=== PATIENT | female | born 1960 | race Caucasian/White ===

== ENCOUNTER 2023-10-28 15:29 | Observation (INO) | payer OTHER ==
[~2023-10-28] VITALS: Ht 175.3 cm; Wt 52.8 kg
[2023-10-28] MEDS ORDERED: LISI20 PO (15:41)
[2023-10-28 15:50] LABS: BASOPHILS ABSOLUTE AUTO 0.03 K/mm3 (0.00-0.23); BASOPHILS PERCENT AUTO 0 % (0-2); EOSINOPHILS ABSOLUTE AUTO 0.01 K/mm3 (0.00-0.68); EOSINOPHILS PERCENT AUTO 0 % (0-6); IMMATURE GRAN ABSOLUTE AUTO 0.38 K/mm3 (0.00-0.10); IMMATURE GRAN PERCENT AUTO 1 % (0-1); LYMPHOCYTES PERCENT AUTO 5 % (21-46); MONOCYTES ABSOLUTE AUTO 1.29 K/mm3 (0.16-1.47); MONOCYTES PERCENT AUTO 4 % (4-13); Mean Corpuscular HGB 20.4 pg (26.0-34.0); Mean Corpuscular HGB Conc 29.3 g/dL (31.5-36.5); Mean Corpuscular Volume 70 fL (80-100); Mean Platelet Volume 8.4 fL (9.1-12.4); NEUTROPHILS ABSOLUTE AUTO 27.36 K/mm3 (1.96-9.15); NEUTROPHILS PERCENT AUTO 90 % (41-73); Platelet Count 371 K/mm3 (150-400); RDW Coefficient Variation 19.9 % (11.7-14.2); White Blood Cell Count 30.57 K/mm3 (4.00-11.30)
[2023-10-28 15:59] LABS: Source, Urine Clean Catch
[2023-10-28 16:02] LABS: Appearance, Urine Hazy (Clear); Bilirubin, Urine Neg (Neg); Blood, Urine Neg (Neg); Color, Urine Yellow (P-Yellow); Glucose Qualitative, Urine Neg (Neg); Ketones, Urine 1+ (Neg); Leukocyte Esterase, Urine 1+ (Neg); Nitrite, Urine Neg (Neg); Protein, Urine 1+ (Neg); Urobilinogen, Urine 2+ (Normal)
[2023-10-28 16:04] LABS: Hematocrit 16.7 % (33.0-51.0); Hemoglobin 4.9 g/dL (11.5-16.0)
[2023-10-28 16:07] LABS: Albumin, Blood 1.2 g/dL (3.4-5.0); Albumin/Globulin Ratio 0.4 (0.8-1.8); Bilirubin, Total 0.4 mg/dL (0.1-1.0); Bun/Creatinine Ratio 29.3 (12.0-20.0); Calcium, Blood 7.3 mg/dL (8.5-10.1); Creatinine, Blood 0.72 mg/dL (0.40-1.00); Globulin, Blood 3.3 g/dL (2.2-4.0); Potassium, Blood 4.1 mmol/L (3.5-5.5); Total Protein, Blood 4.5 g/dL (6.4-8.2)
[2023-10-28 16:12] LABS: Amorphous Light (0-Heavy); Bacteria Few /hpf; Mucus Light (0-Heavy); Red Blood Cells, Urine 0-2 /hpf (0-2); Squamous Epithelial Cells Few /hpf (Few)
[2023-10-28] MEDS ORDERED: NS 1,000 ML IV SCH ×2 (17:35→18:20)
[2023-10-28 18:42] LABS: IMMATURE RETIC FRACTION 41.1 % (2.3-16.0); RETIC HGB EQUIVALENT 22.9 pg (28.20-36.60); RETICULOCYTE ABSOLUTE 0.0686 M/mm3 (0.0200-0.1100); RETICULOCYTE COUNT PERCENT 2.53 % (0.50-2.50)
[2023-10-28 21:25] VITALS: BP 91/65
[2023-10-28 23:09] LABS: Hematocrit 28.1 % (33.0-51.0)
[2023-10-29] VITALS (9 sets, daily range): BP systolic 73–95; BP diastolic 53–69
--- NOTE | 2023-10-29 00:15 | NUR ---
RECEIVED PATIENT FROM EMERGENCY ROOM IN NO APPARENT DISTRESS. PATIENT AWAKE ALERT, WITH BLOOD INFUSING. ABLE TO STAND AND TRANSFER TO BED WITH MINIMAL DIFFICULTY. REP[EAT CBC DONE AFTER BLOOD INFUSED.
[2023-10-29 05:39] LABS: Hematocrit 26.3 % (33.0-51.0); Hemoglobin 8.4 g/dL (11.5-16.0); Mean Corpuscular HGB 23.8 pg (26.0-34.0); Mean Corpuscular HGB Conc 31.9 g/dL (31.5-36.5); Mean Platelet Volume 8.6 fL (9.1-12.4); Platelet Count 327 K/mm3 (150-400); RDW Coefficient Variation 21.1 % (11.7-14.2); RDW Standard Deviation 55.8 fL (35.1-46.3); Red Blood Cell Count 3.53 M/mm3 (3.80-5.20); White Blood Cell Count 31.89 K/mm3 (4.00-11.30)
[2023-10-29 05:43] LABS: Mean Corpuscular Volume 75 fL (80-100)
[2023-10-29] MEDS ORDERED: NS 1,000 ML IV ONE (08:00)
[2023-10-29] MEDS ORDERED: Heparin Sodium,Porcine 5,000 UNIT/0.5 ML SDV SC SCH (09:00)
--- NOTE | 2023-10-29 09:11 | NUR ---
DR. BUCKLEY SAWNTHE PATIENT AT THE BEDSIDE THIS MORNING AT [address] RESULTS AND HER OPTIONS. RN NOTIFIED DR. BUCKLEY THE PATIENT'S LATEST BP FOLLOWING 800 ML OF THE BOLUS WAS ONLY AT 88/55 (65). NO C/O SOB OR DISCOMFORT. PATIENT IS ALERT AND ORIENTED, SITTING IN THE RECLINER WATCHING TV. WILL DOUBLE CHECK FOR PALLIATIVE CARE ORDER.
[2023-10-29] MEDS ORDERED: Lactated Ringer's 1,000 ML IV SCH (09:20)
[2023-10-29] MEDS ORDERED: Lactated Ringer's 1,000 ML IV ONE (09:20)
[2023-10-29] MEDS ORDERED: Scopolamine Hydrobromide Patch TOP PRN (09:40)
[2023-10-29] MEDS ORDERED: Atropine Sulfate 1% Opth Soln 2ML BTL SL PRN (09:40)
[2023-10-29] MEDS ORDERED: Morphine Sulfate 20 MG/1ML 1 ML Oral Syringe SL PRN (09:40)
[2023-10-29] MEDS ORDERED: Haloperidol Lactate Inj. 5 MG/ML Injection IV PRN (09:40)
[2023-10-29] MEDS ORDERED: LORazepam 2 MG/ML 1ML Injection IV PRN (09:40)
[2023-10-29] MEDS ORDERED: Haloperidol Lactate 2 MG / ML 15ML BTL PO PRN (09:40)
[2023-10-29] MEDS ORDERED: LORazepam 1 MG Tab PO PRN (09:45)
--- NOTE | 2023-10-29 17:28 | NUR ---
PATIENT IS ALERT AND ORIENTED AND COOPERATIVE WITH CARE. ON RA. HYPOTENSIVE WITH A BP OF 88/60 (70). DR. BUCKLEY IS AWARE. THE PATIENT IS COMFORT CARE. 2L BOLUS THIS MORNING WITH MAINTAINANCE FLUID RUNNING AT 100 ML/HR NOW. LFA IV PLACED TODAY. SBA TO THE BATHROOM. FAMILY VISITED TODAY. THE PATIENT IS A . DR. BUCKLEY DISCUSSED THE CT RESULTS WITH THE PATIENT THIS MORNING. NO C/O PAIN. C/O FEELING WEAKER THIS AFTERNOON. WILL CONTINUE TO MONITOR
--- NOTE | 2023-10-29 21:00 | NUR ---
REPORT RECEIVED FROM TERRY YATES.
--- NOTE | 2023-10-29 21:25 | NUR ---
PT HERE VIA PCU BED - TRANSFERRED BEDS OUT. FAMILY PRESENT WITH PT. PT IS PALE IN COLOR. PT IS COMFORT CARE. PT'S VAPE PEN LOCKED UP IN DRAWER. PT DENIES ANY PAIN. CALL LIGHT WITHIN REACH. BED IN LOW POSITION AND BED ALARM ON FOR PT SAFETY. FLUIDS AT BEDSIDE. WILL CONTINUE TO MONITOR.
--- NOTE | 2023-10-29 23:36 | NUR ---
PT IS CURRENTLY SLEEPING ON HER SIDE IN BED - RESPIRATIONS EVEN AND UNLABORED.
--- NOTE | 2023-10-30 05:00 | NUR ---
SHIFT SUMMARY - PT HAD FAMILY HERE AT THE BEGINNING OF THE SHIFT. PT HAS BEEN ON/OFF SLEEPING THROUGHOUT THE NIGHT. MEDICATED X1 FOR ABDOMINAL PAIN WITH GOOD RELIEF. PT REQUESTED TO HAVE HER IV FLUIDS TURNED OFF THIS AM. PT IS REQUESTING TO GO HOME TODAY WITH HOSPICE CARE - I WILL REPORT THIS OFF TO ONCOMING SHIFT - NOTIFIED MARIA ISABEL PETERS OF THIS REQUEST. FLUIDS AT BEDSIDE. CALL LIGHT WITHIN REACH. BED IN LOW POSITION. PT REPORTS A DRY COUGH THIS AM - LS ARE CLEAR THROUGHOUT THIS AM. BED ALARM ON FOR PT SAFETY. WILL CONTINUE TO MONITOR UNTIL AM SHIFT CHANGE.
[2023-10-30] MEDS ORDERED: Ativan1 MG PO (13:39)
[2023-10-30] MEDS ORDERED: MORP20L SL (13:42)
--- NOTE | 2023-10-30 16:51 | NUR ---
DISCHAGE SUMMARY PT DC THIS SHIFT. PT LEFT VIA PRIVATE VEHICLE ACCOMPANIED BY FAMILY
--- NOTE | 2023-10-30 17:14 | NUR ---
REVIEWED ALL NOTES AND ASSESSMENTS BY KATRIN DASH
== END 2023-10-30 16:33 | disposition hospice, home (50) ==
LOC: ER 15:29 → MEDS 15:30 → PCU 15:30 → MEDS 10-29 21:22
PROVIDERS: Emergency Medicine; Family Medicine; Nurse Practitioner Acute Care; ADMIT Hospitalist
DX: D64.9 Anemia, unspecified (principal); C34.90 Malignant neoplasm of unspecified part of unspecified bronchus or lung; C78.5 Secondary malignant neoplasm of large intestine and rectum; C78.7 Secondary malignant neoplasm of liver and intrahepatic bile duct; C79.82 Secondary malignant neoplasm of genital organs; I10 Essential (primary) hypertension; I95.9 Hypotension, unspecified; E88.09 Other disorders of plasma-protein metabolism, not elsewhere classified; E78.5 Hyperlipidemia, unspecified; D72.829 Elevated white blood cell count, unspecified; Z51.5 Encounter for palliative care; Z88.5 Allergy status to narcotic agent; Z66 Do not resuscitate
CPT/HCPCS: 36415; 36430; 71046; 71260; 74177; 80053; 81001; 82607; 82728; 82746; 83540; 83550; 83880; 85014; 85018; 85025; 85027; 85045; 86850; 86900; 86901; 86923; 87086; 96361; 96375; 99285-25; A9270; G0378; J2060; J7030; J7120; P9016; Q9967